=== PATIENT | male | born 1990 | race American Indian/Alaskan Native ===

== ENCOUNTER 2018-11-14 08:25 | Emergency (ER) | payer SELFPAY ==
[2018-11-14 08:51] LABS: Basophils % (Auto) 0.4 % (0.0-1.8); Eosinophils # (Auto) 0.1 K/mm3 (0.0-0.4); Eosinophils % (Auto) 1.1 % (0.0-4.3); Hematocrit 50.3 % (35.5-45.6); Hemoglobin 16.5 gm/dl (11.8-15.2); Lymphocytes # (Auto) 2.9 K/mm3 (1.2-5.4); Lymphocytes % (Auto) 26.1 % (13.4-35.0); Mean Corpuscular HGB Conc 33 % (32-34); Mean Corpuscular Volume 92 fl (84-94); Monocytes # (Auto) 1.1 K/mm3 (0.0-0.8); Monocytes % (Auto) 9.9 % (0.0-7.3); Platelet Count 206 K/mm3 (140-440); Red Blood Count 5.49 M/mm3 (3.65-5.03); Red Cell Distribution Width 13.9 % (13.2-15.2)
[2018-11-14 09:05] LABS: BUN/Creatinine Ratio 9; Blood Urea Nitrogen 8 mg/dL (9-20); Calcium 9.6 mg/dL (8.4-10.2); Hemolysis Index 4
[2018-11-14 09:07] LABS: Bilirubin,Urine NEG (Negative); Blood,Urine SM (Negative); Color,Urine Yellow (Yellow); Mucus,Urine FEW /HPF
[2018-11-14 09:14] LABS: Amphetamine Screen,Urine PRESUMPTIVE NEGATIVE; Benzodiazepines Screen,Urine PRESUMPTIVE NEGATIVE; Cannabinoid Screen,Urine PRESUMPTIVE NEGATIVE; Cocaine Screen,Urine PRESUMPTIVE NEGATIVE; Methadone Screen,Urine PRESUMPTIVE NEGATIVE; Opiate Screen,Urine PRESUMPTIVE NEGATIVE
--- NOTE | 2018-11-14 09:40 | Cat Scan Report ---
CT head/brain wo con INDICATION / CLINICAL INFORMATION: Altered mental status. TECHNIQUE: All CT scans at this location are performed using CT dose reduction for ALARA by means of automated e xposure control. COMPARISON: None available. FINDINGS: The ventricular system is normal in size and configuration. No focal lesion or mass effect is seen. T here is no evidence of intracranial hemorrhage or major vessel occlusion. The calvarium is intact. Th e visualized paranasal sinuses and mastoid air cells are clear. IMPRESSION: No acute abnormality. Signer Name: Gordon Morgan MD Signed: 11/14/2018 9:36 AM Workstation Name: [id number]
--- NOTE | 2018-11-14 09:43 | Emergency Department Report ---
<JOON,BETOHERMINIO Werner - Last Filed: 11/14/18 14:50> ED Psych HPI - General Chief Complaint: Psych Stated Complaint: ANXIETY Time Seen by Provider: 11/14/18 09:00 Source: patient, family Mode of arrival: Ambulatory - History of Present Illness Initial Comments: 28-year-old male with no previous psychiatric history presents to ED for mental health evaluation. Mother states the last 2 weeks patient has been paranoid, stating that people are after him. States friends thought that someone may have laced his alcoholic drink with kind of drug. Patient has been delusional, stating that he was on the news and that he has a lawsuit against [employer], which mother states is not true. Patient reports some auditory hallucinations. Denies SI or HI. Patient denies drug use. MD Complaint: altered mental status -: week(s) (2) Associated Psychiatric Symptoms: auditory hallucinations, delusions History of same: No Quality: getting worse Improves With: none Worsens With: none Associated Symptoms: denies other symptoms Treatments Prior to Arrival: none - Related Data Previous Rx's Medication Instructions Recorded Last Taken Type Benztropine [Cogentin] 0.5 mg PO BID #60 tablet 11/16/18 Unknown Rx Ziprasidone [Geodon] 20 mg PO BID #60 capsule 11/16/18 Unknown Rx Allergies Allergy/AdvReac Type Severity Reaction Status Date / Time No Known Allergies Allergy Unverified 11/14/18 08:38 ED Review of Systems Comment: All other systems reviewed and negative Psychiatric: auditory hallucinations, other (reports paranoia, delusions) ED Past Medical Hx - Past Medical History Previous Medical History?: No - Surgical History Past Surgical History?: No - Social History Smoking Status: Never Smoker Substance Use Type: Alcohol - Medications Home Medications: Home Medications Medication Instructions Recorded Confirmed Last Taken Type Benztropine [Cogentin] 0.5 mg PO BID #60 tablet 11/16/18 Unknown Rx Ziprasidone [Geodon] 20 mg PO BID #60 capsule 11/16/18 Unknown Rx ED Physical Exam - General Limitations: No Limitations General appearance: alert, in no apparent distress - Head Head exam: Present: atraumatic, normocephalic - Eye Eye exam: Present: normal appearance, PERRL, EOMI - ENT ENT exam: Present: mucous membranes moist - Neck Neck exam: Present: normal inspection - Respiratory Respiratory exam: Present: normal lung sounds bilaterally. Absent: respiratory distress - Cardiovascular Cardiovascular Exam: Present: regular rate, normal rhythm - GI/Abdominal GI/Abdominal exam: Present: soft. Absent: distended, tenderness - Extremities Exam Extremities exam: Present: normal inspection - Neurological Exam Neurological exam: Present: alert, oriented X3, CN II-XII intact. Absent: motor sensory deficit - Psychiatric Psychiatric exam: Present: normal affect, normal mood - Skin Skin exam: Present: warm, dry, intact, normal color ED Medical Decision Making - Lab Data Result diagrams: 11/14/18 08:42 11/14/18 08:42 - Medical Decision Making 28-year-old male with new-onset psychosis. CT head is normal. Patient placed on 1013. Labs are unremarkable. Patient is medically clear for mental health evaluation. Will dispo per psych. - Differential Diagnosis drug induced psychosis, new onset schizophrenia ED Disposition Clinical Impression: Psychosis Disposition: DC-01 TO HOME OR SELFCARE Condition: Stable Instructions: Brief Psychotic Disorder (ED) Additional Instructions: Take the medication as prescribed. Follow-up with your doctor or with the do ctor/clinic provided. Return if symptoms worsen as indicated by your discharge instructions. Prescriptions: Benztropine [Cogentin] 0.5 mg PO BID #60 tablet Ziprasidone [Geodon] 20 mg PO BID #60 capsule Referrals: [facility] [Outside] - 3-5 Days <SUREKHA ABARCA - Last Filed: 11/16/18 10:48> ED Review of Systems ROS: Stated complaint: ANXIETY Other details as noted in HPI ED Course Vital Signs 11/14/18 11/14/18 11/14/18 08:35 14:34 20:47 Temperature 98.4 F 98.0 F 97.9 F Pulse Rate 90 77 75 Respiratory 18 18 18 Rate Blood Pressure 162/111 Blood Pressure 160/97 162/97 [Right] O2 Sat by Pulse 100 98 98 Oximetry 11/15/18 11/15/18 11/15/18 01:00 08:00 14:48 Temperature 97.5 F L 98.1 F 97.6 F Pulse Rate 82 75 88 Respiratory 16 18 20 Rate Blood Pressure Blood Pressure 130/89 163/100 183/103 [Right] O2 Sat by Pulse 98 99 100 Oximetry 11/15/18 11/16/1819 22:41 00:00 07:00 Temperature 98.2 F 97.3 F L 97.5 F L Pulse Rate 98 H 92 H 91 H Respiratory 18 18 18 Rate Blood Pressure Blood Pressure 134/99 137/81 134/104 [Right] O2 Sat by Pulse 100 98 99 Oximetry - Reevaluation(s) Reevaluation #1: 11/16/18 10:43 1013 rescinded as per recommendation ED Medical Decision Making - Lab Data Result diagrams: 11/14/18 08:42 11/14/18 08:42 Critical Care Time: No Critical care attestation.: If time is entered above; I have spent that time in minutes in the direct care of this critically ill patient, excluding procedure time. ED Disposition Is pt being admited?: No Does the pt Need Aspirin: No Time of Disposition: 10:47
[2018-11-14] MEDS ORDERED: cloNIDine 0.2 MG TAB PO ONE (23:08)
[2018-11-15] MEDS ORDERED: hydroCHLOROthiazide 25 MG TAB PO ONE (10:17)
[2018-11-15] MEDS ORDERED: hydrOXYzine PAMOATE 25 MG CAP PO ONE (11:51)
--- NOTE | 2018-11-15 12:03 | Consultation ---
History of Present Illness - Reason for Consult Consult date: 11/15/18 Reason for consult: Mental Health Evaluation Requesting physician: ANICETO DUPREE - Chief Complaint Chief complaint: 'They are after me" - History of Present Psychiatric Illness 28 y.o. AA male who presented to the ER for acute psychosis. The patient was somewhat preoccupied during the assessment. He was asked about "people following him, he stated, 'They are. " He could not elaborate about these people when asked. Throughout the interview, he would pause before he answer questions. Prior to my arrival to the patient's room, he was observed staring at the TV monitor that was off. The patient is adamant that he is fine and need to get back to work. At this time, the patient's insight is limited to poor. No gestures of SI/HI's. Medications and Allergies Allergies Allergy/AdvReac Type Severity Reaction Status Date / Time No Known Allergies Allergy Unverified 11/14/18 08:38 Home Medications Medication Instructions Recorded Confirmed Last Taken Type Benztropine [Cogentin] 0.5 mg PO BID #60 tablet 11/16/18 Unknown Rx Ziprasidone [Geodon] 20 mg PO BID #60 capsule 11/16/18 Unknown Rx Past psychiatric history - Past Medical History Past Medical History: No medical history Past Surgical History: No surgical history - past Psychiatric treatment and history psychiatric treatment history: Denies a psy hx and a fam psy hx. - Social History Social history: lives with family Mental Status Exam - Vital signs Last Vital Signs Temp 97.5 F L 11/15/18 01:00 Pulse 82 11/15/18 01:00 Resp 16 11/15/18 01:00 BP 130/89 11/15/18 01:00 Pulse Ox 98 11/15/18 01:00 - Exam Narrative exam: MSE: Appearance: calm Behavior: regular eye contact Speech: regular rate and tone Mood: somewhat preoccupied Affect: congruent to mood Thought Process: somewhat disorganized, tangential Thought Content: denies SI/HI's and AVH's, delusional, responding to some type of stimuli Motor Activity: sitting up in bed Cognition: A/O x3 Insight: variable Judgment: variable Results Result Diagrams: 11/14/18 08:42 11/14/18 08:42 All other labs normal. Assessment and Plan Assessment and plan: Impression: Unspecified Psychosis. Today the patient was somewhat preoccupied during the assessment. UDS is negative. DDX: R/O Schizophrenia, Bipolar DO with psychosis, Delusional DO Recommendation/Plan: Continue 1013 and start Geodon 20 mg PO mg PO BID for psyhcosis and Cogentin 0.5 mg BID for EPS prevention. Discussed possible metabolic side effects of Geodon with the patient, he verbalized understanding, Admin Geodon with food. Baseline A1c/Lipid Panel ordered for the AM. Dispo: The patient was referred to inpatient psy services. Staffed with Dr Charlie Griffith.
[2018-11-15] MEDS: ZIPRASIDONE 20 MG CAP PO SCH ×2 (12:59→22:21)
[2018-11-15] MEDS: BENZTROPINE 0.5 MG TAB PO SCH ×2 (12:59→22:21)
[2018-11-16 06:09] LABS: Chol/HDL Ratio 3.52 %
[2018-11-16 07:55] VITALS: BP 134/104
--- NOTE | 2018-11-16 09:37 | Progress Note ---
Subjective - Reason for Consult Consult date: 11/16/18 Reason for consult: Psychiatry Follow-up - Chief Complaint Chief complaint: 'I feel better, I got some sleep" 28 y.o. AA male who presented to the ER for acute psychosis. The patient was calm and cooperative during the assessment. He was more organized. His answers were logical. He stated that he got "plenty of rest" last night. He denies being watched or followed when asked. He denies SI/HI's and AVH's. He denies any side effects from his medications. Mental Status Exam - Vital signs Last Vital Signs Temp 97.5 F L 11/16/18 07:00 Pulse 91 H 11/16/18 07:00 Resp 18 11/16/18 07:00 BP 134/104 11/16/18 07:00 Pulse Ox 99 11/16/18 07:00 - Exam Narrative exam: MSE: Appearance: calm, cooperative Behavior: regular eye contact Speech: regular rate and tone Mood: "better" Affect: congruent to mood Thought Process: more organized Thought Content: denies SI/HI's and AVH's Motor Activity: sitting up in bed Cognition: A/O x3 Insight: fair Judgment: fair Assessment and Plan Impression: Unspecified Psychosis. No overt psychosis with the patient. Today the patient was calm and cooperative during the assessment. UDS is negative. DDX: R/O Schizophrenia, Bipolar DO with psychosis, Delusional DO Recommendation/Plan: Rescind 1013 and continue Geodon 20 mg PO mg PO BID for psychosis and Cogentin 0.5 mg BID for EPS prevention. Discussed possible metabolic side effects of Geodon with the patient, he verbalized understanding, Admin Geodon with food. Dispo: The patient can follow up with [facility] for outpatient psy services. Staffed with Dr Charlie Griffith.
[2018-11-16] MEDS: BENZTROPINE 0.5 MG TAB PO SCH (10:10)
[2018-11-16] MEDS: ZIPRASIDONE 20 MG CAP PO SCH (10:11)
== END 2018-11-16 11:00 | disposition home or self-care (01) ==
LOC: EEVIPCON 08:25 → ED 08:25
DX: F23 Brief psychotic disorder (principal); F41.9 Anxiety disorder, unspecified; Z79.899 Other long term (current) drug therapy
CPT/HCPCS: 36415; 70450; 80048; 80061; 80307; 80320; 81001; 83036; 85025; 99284; G0480; Q0177

== ENCOUNTER 2019-08-14 18:44 | Emergency (ER) | payer SELFPAY ==
--- NOTE | 2019-08-14 19:22 | Emergency Department Report ---
Blank Doc - Documentation Documentation: 29-year-old male that near syncope episode today at work. Stated he started to have sharp midsternum chest pain at work and was sent to the ED. Tachycardia and HTN in triage. This initial assessment/diagnostic orders/clinical plan/treatment(s) is/are subject to change based on patient's health status, clinical progression and re- assessment by fellow clinical providers in the ED. Further treatment and workup at subsequent clinical providers discretion. Patient/guardians urged not to elope from the ED as their condition may be serious if not clinically assessed and managed. Initial orders include: 1- Patient sent to [facility] for further evaluation and treatment 2-- cardiac workup
[2019-08-14 19:45] LABS: Basophils # (Auto) 0.1 K/mm3 (0.0-0.1); Basophils % (Auto) 0.5 % (0.0-1.8); Eosinophils # (Auto) 0.1 K/mm3 (0.0-0.4); Eosinophils % (Auto) 0.5 % (0.0-4.3); Hematocrit 45.8 % (35.5-45.6); Hemoglobin 15.4 gm/dl (11.8-15.2); Lymphocytes # (Auto) 2.6 K/mm3 (1.2-5.4); Lymphocytes % (Auto) 25.7 % (13.4-35.0); Mean Corpuscular HGB Conc 34 % (32-34); Mean Corpuscular Volume 93 fl (84-94); Monocytes # (Auto) 0.8 K/mm3 (0.0-0.8); Monocytes % (Auto) 8.1 % (0.0-7.3); Platelet Count 191 K/mm3 (140-440); Red Blood Count 4.94 M/mm3 (3.65-5.03)
--- NOTE | 2019-08-14 19:47 | XRay Report ---
CHEST 2 VIEWS INDICATION / CLINICAL INFORMATION: Chest Pain. COMPARISON: 11/16/2007 FINDINGS: SUPPORT DEVICES: None. HEART / MEDIASTINUM: No significant abnormality. LUNGS / PLEURA: No significant pulmonary or pleural abnormality. No pneumothorax. ADDITIONAL FINDINGS: No significant additional findings. IMPRESSION: 1. No acute findings. No interval change. Signer Name: Jesenia Pickett MD Signed: 08/14/2019 7:42 PM Workstation Name: [id number]
[2019-08-14 20:08] LABS: Alanine Aminotransferase 101 units/L (7-56); BUN/Creatinine Ratio 11; Blood Urea Nitrogen 10 mg/dL (9-20); Calcium 9.7 mg/dL (8.4-10.2)
--- NOTE | 2019-08-14 21:57 | Emergency Department Report ---
ED General Adult HPI - General Chief complaint: Chest Pain Stated complaint: CP PUI?: No Time Seen by Provider: 08/14/19 19:13 Source: patient Mode of arrival: Ambulatory Limitations: No Limitations - History of Present Illness Initial comments: 29-year-old morbidly obese -[place]onese male presents to the emergency room reporting that he needs a checkup for his heartburn. Patient states that he [place] [employer] [place] Patient [place] and the [place] yogurt placed in his been having some problems at work. Patient states that he usually takes Tums for his heartburn which helps. Patient denies any nausea vomiting he does report sweats. Patient reports that he had some chest pain when asked about any chest pain he pointed to the midsternal area. Patient denies any discomfort or pain at this time. Review of patient's medical records shows that he has elevated blood pressure several times while coming here to the hospital. Patient denies any primary care provider at this time -: This evening Location: chest Radiation: non-radiation Severity scale (0 -10): 6 Quality: sharp Consistency: now resolved Associated Symptoms: other Treatments Prior to Arrival: other (Tums and acids) - Related Data Previous Rx's Medication Instructions Recorded Last Taken Type Benztropine [Cogentin] 0.5 mg PO BID #60 tablet 11/16/18 Unknown Rx Ziprasidone [Geodon] 20 mg PO BID #60 capsule 11/16/18 Unknown Rx Allergies Allergy/AdvReac Type Severity Reaction Status Date / Time No Known Allergies Allergy Verified 08/14/19 18:57 ED Review of Systems ROS: Stated complaint: CP Other details as noted in HPI Comment: All other systems reviewed and negative ED Past Medical Hx - Past Medical History Previous Medical History?: No - Surgical History Past Surgical History?: No - Social History Smoking Status: Former Smoker Substance Use Type: None - Medications Home Medications: Home Medications Medication Instructions Recorded Confirmed Last Taken Type Benztropine [Cogentin] 0.5 mg PO BID #60 tablet 11/16/18 Unknown Rx Ziprasidone [Geodon] 20 mg PO BID #60 capsule 11/16/18 Unknown Rx ED Physical Exam - General Limitations: No Limitations General appearance: alert, in no apparent distress, obese - Head Head exam: Present: atraumatic, normocephalic - Eye Eye exam: Present: normal appearance - ENT ENT exam: Present: mucous membranes moist - Neck Neck exam: Present: normal inspection - Respiratory Respiratory exam: Present: normal lung sounds bilaterally. Absent: respiratory distress - Cardiovascular Cardiovascular Exam: Present: regular rate, normal rhythm. Absent: systolic murmur, diastolic murmur, rubs, gallop - GI/Abdominal GI/Abdominal exam: Present: soft, normal bowel sounds. Absent: distended, tenderness, guarding - Rectal Rectal exam: Present: deferred - Extremities Exam Extremities exam: Present: normal inspection, full ROM - Back Exam Back exam: Present: normal inspection, full ROM - Neurological Exam Neurological exam: Present: alert, oriented X3 - Psychiatric Psychiatric exam: Present: normal affect, normal mood - Skin Skin exam: Present: warm, dry, intact, normal color. Absent: rash ED Course Vital Signs 08/14/19 08/14/19 19:03 19:17 Temperature 98 F Pulse Rate 104 H Respiratory 18 Rate Blood Pressure 174/113 159/109 [Left] O2 Sat by Pulse 98 Oximetry ED Medical Decision Making - Lab Data Result diagrams: 08/14/19 19:25 08/14/19 19:25 Laboratory Tests 08/14/19 08/14/19 19:25 19:25 WBC 10.0 RBC 4.94 Hgb 15.4 H Hct 45.8 H MCV 93 MCH 31 MCHC 34 RDW 14.0 Plt Count 191 Lymph % (Auto) 25.7 Jones % (Auto) 8.1 H Eos % (Auto) 0.5 Baso % (Auto) 0.5 Lymph # 2.6 Jones # 0.8 Eos # 0.1 Baso # 0.1 Seg Neutrophils % 65.2 Seg Neutrophils # 6.5 Sodium 138 Potassium 3.7 Chloride 101.0 Carbon Dioxide 24 Anion Gap 17 BUN 10 Creatinine 0.9 Estimated GFR > 60 BUN/Creatinine Ratio 11 Glucose 134 H Calcium 9.7 Total Bilirubin 0.50 AST 62 H ALT 101 H Alkaline Phosphatase 98 Troponin T < 0.010 Total Protein 7.0 Albumin 4.0 Albumin/Globulin Ratio 1.3 - EKG Data EKG shows normal: sinus rhythm Rate: tachycardia - Radiology Data Radiology results: report reviewed Referring Physician:BIRTTNEY ROTHMANPatient Name:JENNIFER BAUTISTAPatient ID:[id number] of :[id number]:MaleAccession:[id number] Date:[id number] Status:Finalized Findings [facility] [address] [place] [address] XRay Report Signed Patient: JENNIFER BAUTISTA MR#: [id number] : 1990 Acct:[id number] Age/Sex: 29 / M ADM Date: 08/14/19 Loc: ED Attending Dr: Ordering Physician: BRITTNEY ROTHMAN NP Date of Service: 08/14/19 Procedure(s): XR chest routine 2V Accession Number(s): [id number] cc: BRITTNEY ROTHMAN NP Fluoro Time In Minutes: CHEST 2 VIEWS INDICATION / CLINICAL INFORMATION: Chest Pain. COMPARISON: 11/16/2007 FINDINGS: SUPPORT DEVICES: None. HEART / MEDIASTINUM: No significant abnormality. LUNGS / PLEURA: No significant pulmonary or pleural abnormality. No pneumothorax. ADDITIONAL FINDINGS: No significant additional findings. IMPRESSION: 1. No acute findings. No interval change. Signer Name: Jesenia Pickett MD Signed: 08/14/2019 7:42 PM Workstation Name: [id number] Transcribed By: JR Dictated By: Jesenia Pickett MD Electronically Authenticated By: Jesenia Pickett MD Signed Date/Time: 08/14/191941 DD/ 41 TD/TT: - Medical Decision Making 29-year-old morbidly obese -[place]onese male presents to the emergency room reporting that he needs a checkup for his heartburn. Patient states that he thinks someone put a pill in his drink at the [employer] at the [employer]. Patient reports he works at the [employer] and the TBI yogurt placed in his been having some problems at work. Patient states that he usually takes Tums for his heartburn which helps. Patient denies any nausea vomiting he does report sweats. Patient reports that he had some chest pain when asked about any chest pain he pointed to the midsternal area. Patient denies any discomfort or pain at this time. Review of patient's medical records shows that he has elevated blood pressure several times while coming here to the hospital. Patient denies any primary care provider at this time. Labs are stable no elevation of troponin lipase is normal. Chest x-ray shows no acute abnormalities. EKG is within normal limits. Patient be referred to a primary care provider as well as a rectification printer and bariatric surgeon. Critical care attestation.: If time is entered above; I have spent that time in minutes in the direct care of this critically ill patient, excluding procedure time. ED Disposition Clinical Impression: Severely overweight, Atypical chest pain, Acid reflux, Elevated blood pressure reading in office with diagnosis of hypertension Disposition: TO HOME OR SELFCARE Is pt being admited?: No Does the pt Need Aspirin: No Condition: Stable Instructions: Chest Pain (ED), Hypertension (ED), Gastroesophageal Reflux Disease (ED) Additional Instructions: Please follow-up with a primary care provider I have listed 1 below. I have also listed a rectification printer as well as a general surgeon to talk about bariatric interventions. For weight loss. You can continue with Tums until you make an appointment with your primary care provider. Referrals: PRIMARY CAREMD [Primary Care Provider] - 3-5 Days BEATRIS OCONNOR MD [Staff Physician] - 3-5 Days [facility] [Provider Group] - 3-5 Days KYLER CARRERO MD [Staff Physician] - 3-5 Days Forms: Work/School Release Form(ED)
[2019-08-14 22:31] VITALS: BP 149/100
== END 2019-08-14 22:42 | disposition home or self-care (01) ==
LOC: ED 18:44
DX: R07.89 Other chest pain (principal); K21.9 Gastro-esophageal reflux disease without esophagitis; I10 Essential (primary) hypertension; E66.8 Other obesity; Z87.891 Personal history of nicotine dependence
CPT/HCPCS: 36415; 71046; 80053; 84484; 85025; 93005

== ENCOUNTER 2020-07-13 18:46 | Emergency (ER) | payer OTHER, SELFPAY ==
[2020-07-13 21:27] LABS: Basophils # (Auto) 0.1 K/mm3 (0.0-0.1); Basophils % (Auto) 0.6 % (0.0-1.8); Eosinophils % (Auto) 0.2 % (0.0-4.3); Hematocrit 47.5 % (35.5-45.6); Lymphocytes # (Auto) 2.5 K/mm3 (1.2-5.4); Lymphocytes % (Auto) 15.1 % (13.4-35.0); Mean Corpuscular HGB Conc 34 % (32-34); Mean Corpuscular Volume 92 fl (84-94); Monocytes % (Auto) 6.3 % (0.0-7.3); Platelet Count 210 K/mm3 (140-440); Red Blood Count 5.16 M/mm3 (3.65-5.03); Red Cell Distribution Width 13.9 % (13.2-15.2)
[2020-07-13 21:45] LABS: BUN/Creatinine Ratio 10; Blood Urea Nitrogen 10 mg/dL (9-20); Calcium 9.9 mg/dL (8.4-10.2); Hemolysis Index 5
[2020-07-13] MEDS ORDERED: LORazepam 1 MG TAB PO ONE (23:39)
--- NOTE | 2020-07-14 00:02 | Emergency Department Report ---
<ANIYAH GALVEZ - Last Filed: 07/14/20 13:54> ED Psych HPI - General Chief Complaint: Psych Stated Complaint: MENTAL HEALTH/ NOT TAKING MEDS Time Seen by Provider: 07/13/20 23:25 - Related Data Previous Rx's Medication Instructions Recorded Last Taken Type Benztropine [Cogentin] 0.5 mg PO BID #60 tablet 11/16/18 Unknown Rx Ziprasidone [Geodon] 20 mg PO BID #60 capsule 11/16/18 Unknown Rx Paliperidone Palmitate [Invega 156 mg IM QMONTH #3 syringe 07/14/20 Unknown Rx Sustenna] Allergies Allergy/AdvReac Type Severity Reaction Status Date / Time No Known Allergies Allergy Verified 08/14/19 18:57 ED Past Medical Hx - Medications Home Medications: Home Medications Medication Instructions Recorded Confirmed Last Taken Type Benztropine [Cogentin] 0.5 mg PO BID #60 tablet 11/16/18 Unknown Rx Ziprasidone [Geodon] 20 mg PO BID #60 capsule 11/16/18 Unknown Rx Paliperidone Palmitate [Invega 156 mg IM QMONTH #3 syringe 07/14/20 Unknown Rx Sustenna] ED Course - Reevaluation(s) Reevaluation #1: 07/14/20 13:54 Psychiatric Consult Note Patient Name: JENNIFER BAUTISTA Date of : 89 Patient Status: Emergency Emergency Provider: ANICETO DUPREE Date: 07/14/20 11:11 Initialization Date: 07/14/20 11:11 History of Present Illness - Reason for Consult Consult date: 07/14/20 Reason for consult: MHE Requesting physician: ANICETO DUPREE - History of Present Psychiatric Illness Per ED Provider:30-year-old male, history of bipolar disorder and schizophrenia, presents to ED for mental health evaluation. Per patient's mother, patient has not been taking his medication for the last month. Patient has been exhibiting aggressive behavior and rambling thoughts. Patient reports some auditory hallucinations. States people are sending messages to him. Patient denies any SI or HI. PSYCH HPI Patient is a 30-year-old single, unemployed -[place] male with past psychiatric history of bipolar schizophrenia who currently resides with his mom presented to the ED by mom with complaint of increased aggressive behavior and medication noncompliance. Patient presented as guarded, patient stated he is here because his mom brought him here due to family problems. Patient elaborates that her family problem is currently having is with his stepdad who has been a coward and has been messing with him at home. Patient denies SI, HI or AVJ. PAST PSYCHIATRIC HISTORY Diagnoses: Schizophrenia Suicide attempts or Self-harm behavior: none rported Prior psychiatric hospitalizations: none rported Substance Abuse history: none rported Previous psychiatric medications tried: Outpatient treatment: PAST MEDICAL HISTORY: none rported Family Psychiatric History: None reported or documented SOCIAL HISTORY Marital Status: single Living Arrangements: with family Employment Status: emplyed Access to guns/weapons: none reprted Education: some college History of Abuse: none reprted Legal History: yes REVIEW OF SYSTEMS Constitutional: Negative for weight loss ENT: Negative for stridor Respiratory: Negative for cough or hemoptysis All other systems reviewed and are negative MENTAL STATUS EXAMINATION General Appearance and Behavior: Age appropriate, fair hygiene, wearing appropriate clothes, lying in bed, poor eye contact, cooperative irritable with questioning. Cooperation: Participating, Hostile and Guarded Psychomotor Behavior: unremarkable and within normal limits Mood: I don't know Affect and affective range: flat, preservative Thought Process: Illogical, Blocked, Thought Content: Hopelessness, Speech: Normal volume, Regular rate and rhythm, Intellectual Functioning: Average Suicidal Ideation: Denies SI Homicidal Ideation: Denies HI Impulse Control: Impaired Insight and Judgment: Limited insight and judgment Memory: Short term memory intact Attention: Divided attention impaired Orientation: Alert, oriented, Assessment and Plan - Psychiatric problem (1) Bipolar disorder Current Visit: Yes Status: Acute F31.9 Treatment Plan Due to history of non compliance, pt started on IM invega, would need outpt follow up psychiatry. MEDICATIONS: Risks, benefits and alternatives of medications discussed with the patient, questions answered and consent obtained from patient. PSYCHOTHERAPY: Supportive psychotherapy provided MEDICAL: Per primary team DELIRIUM PRECAUTIONS: Please re-orient patient frequently, keep lights on during the day, and minimize benzodiazepines and opiates as these medications could worsen patient's confusion. 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 Case discussed with Dr. Restrepo who agrees with current disposition LEGAL STATUS: 1013 rescinded FOLLOW-UP: Will sign off Thank you for the consult. Please contact with any questions and/or concerns. ED Medical Decision Making - Lab Data Result diagrams: 07/14/20 11:40 07/13/20 20:57 Lab Results 07/13/20 07/13/20 07/13/20 Range/Units 20:57 20:57 20:57 WBC (4.5-11.0) K/mm3 RBC (3.65-5.03) M/mm3 Hgb (11.8-15.2) gm/dl Hct (35.5-45.6) % MCV (84-94) fl MCH (28-32) pg MCHC (32-34) % RDW (13.2-15.2) % Plt Count (140-440) K/mm3 Lymph % (Auto) (13.4-35.0) % [place] % (Auto) (0.0-7.3) % Eos % (Auto) (0.0-4.3) % Baso % (Auto) (0.0-1.8) % Lymph # (Auto) (1.2-5.4) K/mm3 [place] # (Auto) (0.0-0.8) K/mm3 Eos # (Auto) (0.0-0.4) K/mm3 Baso # (Auto) (0.0-0.1) K/mm3 Seg Neutrophils % (40.0-70.0) % Seg Neutrophils # (1.8-7.7) K/mm3 Sodium 138 (137-145) mmol/L Potassium 4.2 (3.6-5.0) mmol/L Chloride 99.3 (98-107) mmol/L Carbon Dioxide 28 (22-30) mmol/L Anion Gap 15 mmol/L BUN 10 (9-20) mg/dL Creatinine 1.0 (0.8-1.3) mg/dL Estimated GFR > 60 ml/min BUN/Creatinine Ratio 10 % Glucose 171 H (75-100) mg/dL Calcium 9.9 (8.4-10.2) mg/dL Urine Color (Yellow) Urine Turbidity (Clear) Urine pH (5.0-7.0) Ur Specific [place] (1.003-1.030) Urine Protein (Negative) mg/dL Urine Glucose (UA) (Negative) mg/dL Urine Ketones (Negative) mg/dL Urine Blood (Negative) Urine Nitrite (Negative) Ur Reducing Substances Urine Bilirubin (Negative) Urine Ictotest Urine Urobilinogen (<2.0) mg/dL Ur Leukocyte Esterase (Negative) Urine WBC (Auto) (0.0-6.0) /HPF Urine RBC (Auto) (0.0-6.0) /HPF U Epithel Cells (Auto) (0-13.0) /HPF Urine Mucus /HPF Salicylates 0.3 L (2.8-20.0) mg/dL Urine Opiates Screen Urine Methadone Screen Acetaminophen 5.0 L (10.0-30.0) ug/mL Ur Barbiturates Screen Ur Phencyclidine Scrn Ur Amphetamines Screen U Benzodiazepines Scrn Urine Cocaine Screen U Marijuana (THC) Screen Drugs of Abuse Note Plasma/Serum Alcohol (0-0.07) % 07/13/20 07/13/20 07/14/20 Range/Units 20:57 20:57 07:52 WBC 16.7 H (4.5-11.0) K/mm3 RBC 5.16 H (3.65-5.03) M/mm3 Hgb 16.0 H (11.8-15.2) gm/dl Hct 47.5 H (35.5-45.6) % MCV 92 (84-94) fl MCH 31 (28-32) pg MCHC 34 (32-34) % RDW 13.9 (13.2-15.2) % Plt Count 210 (140-440) K/mm3 Lymph % (Auto) 15.1 (13.4-35.0) % [place] % (Auto) 6.3 (0.0-7.3) % Eos % (Auto) 0.2 (0.0-4.3) % Baso % (Auto) 0.6 (0.0-1.8) % Lymph # (Auto) 2.5 (1.2-5.4) K/mm3 [place] # (Auto) 1.0 H (0.0-0.8) K/mm3 Eos # (Auto) 0.0 (0.0-0.4) K/mm3 Baso # (Auto) 0.1 (0.0-0.1) K/mm3 Seg Neutrophils % 77.8 H (40.0-70.0) % Seg Neutrophils # 13.0 H (1.8-7.7) K/mm3 Sodium (137-145) mmol/L Potassium (3.6-5.0) mmol/L Chloride (98-107) mmol/L Carbon Dioxide (22-30) mmol/L Anion Gap mmol/L BUN (9-20) mg/dL Creatinine (0.8-1.3) mg/dL Estimated GFR ml/min BUN/Creatinine Ratio % Glucose (75-100) mg/dL Calcium (8.4-10.2) mg/dL Urine Color Yellow (Yellow) Urine Turbidity Clear (Clear) Urine pH 6.0 (5.0-7.0) Ur Specific [place] 1.021 (1.003-1.030) Urine Protein 30 mg/dl (Negative) mg/dL Urine Glucose (UA) Neg (Negative) mg/dL Urine Ketones Neg (Negative) mg/dL Urine Blood Neg (Negative) Urine Nitrite Neg (Negative) Ur Reducing Substances Not Reportable Urine Bilirubin Neg (Negative) Urine Ictotest Not Reportable Urine Urobilinogen 4.0 (<2.0) mg/dL Ur Leukocyte Esterase Neg (Negative) Urine WBC (Auto) < 1.0 (0.0-6.0) /HPF Urine RBC (Auto) 3.0 (0.0-6.0) /HPF U Epithel Cells (Auto) < 1.0 (0-13.0) /HPF Urine Mucus Few /HPF Salicylates (2.8-20.0) mg/dL Urine Opiates Screen Urine Methadone Screen Acetaminophen (10.0-30.0) ug/mL Ur Barbiturates Screen Ur Phencyclidine Scrn Ur Amphetamines Screen U Benzodiazepines Scrn Urine Cocaine Screen U Marijuana (THC) Screen Drugs of Abuse Note Plasma/Serum Alcohol < 0.01 (0-0.07) % 07/14/20 07/14/20 Range/Units 07:52 11:40 WBC 11.8 H (4.5-11.0) K/mm3 RBC 4.88 (3.65-5.03) M/mm3 Hgb 15.2 (11.8-15.2) gm/dl Hct 45.2 (35.5-45.6) % MCV 93 (84-94) fl MCH 31 (28-32) pg MCHC 34 (32-34) % RDW 13.9 (13.2-15.2) % Plt Count 180 (140-440) K/mm3 Lymph % (Auto) (13.4-35.0) % [place] % (Auto) (0.0-7.3) % Eos % (Auto) (0.0-4.3) % Baso % (Auto) (0.0-1.8) % Lymph # (Auto) (1.2-5.4) K/mm3 [place] # (Auto) (0.0-0.8) K/mm3 Eos # (Auto) (0.0-0.4) K/mm3 Baso # (Auto) (0.0-0.1) K/mm3 Seg Neutrophils % (40.0-70.0) % Seg Neutrophils # (1.8-7.7) K/mm3 Sodium (137-145) mmol/L Potassium (3.6-5.0) mmol/L Chloride (98-107) mmol/L Carbon Dioxide (22-30) mmol/L Anion Gap mmol/L BUN (9-20) mg/dL Creatinine (0.8-1.3) mg/dL Estimated GFR ml/min BUN/Creatinine Ratio % Glucose (75-100) mg/dL Calcium (8.4-10.2) mg/dL Urine Color (Yellow) Urine Turbidity (Clear) Urine pH (5.0-7.0) Ur Specific [place] (1.003-1.030) Urine Protein (Negative) mg/dL Urine Glucose (UA) (Negative) mg/dL Urine Ketones (Negative) mg/dL Urine Blood (Negative) Urine Nitrite (Negative) Ur Reducing Substances Urine Bilirubin (Negative) Urine Ictotest Urine Urobilinogen (<2.0) mg/dL Ur Leukocyte Esterase (Negative) Urine WBC (Auto) (0.0-6.0) /HPF Urine RBC (Auto) (0.0-6.0) /HPF U Epithel Cells (Auto) (0-13.0) /HPF Urine Mucus /HPF Salicylates (2.8-20.0) mg/dL Urine Opiates Screen Negative Urine Methadone Screen Negative Acetaminophen (10.0-30.0) ug/mL Ur Barbiturates Screen Negative Ur Phencyclidine Scrn Negative Ur Amphetamines Screen Negative U Benzodiazepines Scrn Negative Urine Cocaine Screen Negative U Marijuana (THC) Screen Negative Drugs of Abuse Note Disclamer Plasma/Serum Alcohol (0-0.07) % - Medical Decision Making Patient was signed off on by our psychiatry team and they stated that the patient does not meet inpatient psychiatric criteria. Patient be discharged home ED Disposition Clinical Impression: Schizophrenia Disposition: DC-01 TO HOME OR SELFCARE Is pt being admited?: No Does the pt Need Aspirin: No Condition: Stable Instructions: Schizophrenia, Supporting Someone With Schizophrenia Additional Instructions: OUTPATIENT MENTAL HEALTH RESOURCES [facility], [facility] Maulik Nguyen MD: [address] [place] [address] [facility] [address] [place] [address] [place] [address] [place] Psychotherapy: [employer] [address] [place] [address] [place] [address] [phone] [facility]: [facility] Healthcare: [address] [facility] [address] [facility] [place] [address] [facility] [address] [place] [facility]: Sy Anderson MD: [address] [facility] [address] [facility] [id number] [facility]: [address] [facility] [place], [place] [id number] [phone] [place] CRISIS AND ACCESS LINE: Prescriptions: Paliperidone Palmitate [Invega Sustenna] 156 mg IM QMONTH #3 syringe Referrals: ROCK MENENDEZ MD [Primary Care Provider] - 3-5 Days Time of Disposition: 13:55 <ANICETO DUPREE - Last Filed: 07/15/20 00:49> ED Psych HPI - General Source: patient Mode of arrival: Ambulatory - History of Present Illness Initial Comments: 30-year-old male, history of bipolar disorder and schizophrenia, presents to ED for mental health evaluation. Per patient's mother, patient has not been taking his medication for the last month. Patient has been exhibiting aggressive behavior and rambling thoughts. Patient reports some auditory hallucinations. States people are sending messages to him. Patient denies any SI or HI. MD Complaint: other -: month(s) (1) Associated Psychiatric Symptoms: auditory hallucinations, delusions, other (A ggressive behavior) Quality: constant Improves With: medication Worsens With: other (Being off his psychiatric medications) Context: not taking psychiatric Associated Symptoms: denies other symptoms Treatments Prior to Arrival: none ED Review of Systems ROS: Stated complaint: MENTAL HEALTH/ NOT TAKING MEDS Other details as noted in HPI Comment: All other systems reviewed and negative Constitutional: denies: chills, fever ENT: denies: throat pain Respiratory: denies: cough, shortness of breath Gastrointestinal: diarrhea. denies: abdominal pain, nausea, vomiting Psychiatric: auditory hallucinations. denies: homicidal thoughts, suicidal thoughts ED Past Medical Hx - Past Medical History Previous Medical History?: Yes Hx Psychiatric Treatment: Yes (Bipolar, Schizophrenia) Additional medical history: Morbid Obesity - Surgical History Past Surgical History?: No - Social History Smoking Status: Never Smoker Substance Use Type: None ED Physical Exam - General Limitations: No Limitations General appearance: alert, in no apparent distress, obese - Head Head exam: Present: atraumatic, normocephalic - Eye Eye exam: Present: normal appearance, EOMI - ENT ENT exam: Present: mucous membranes moist - Neck Neck exam: Present: normal inspection - Respiratory Respiratory exam: Present: normal lung sounds bilaterally. Absent: respiratory distress - Cardiovascular Cardiovascular Exam: Present: regular rate, normal rhythm - GI/Abdominal GI/Abdominal exam: Absent: distended - Extremities Exam Extremities exam: Present: normal inspection - Neurological Exam Neurological exam: Present: alert, oriented X3 - Psychiatric Psychiatric exam: Present: normal affect, normal mood - Skin Skin exam: Present: warm, dry, intact, normal color ED Course Vital Signs 07/13/20 07/13/20 07/14/20 21:04 23:43 00:29 Temperature 99.8 F H 98.4 F Pulse Rate 100 H 96 H Respiratory 18 18 18 Rate Blood Pressure Blood Pressure 174/100 181/89 [Left] O2 Sat by Pulse 100 99 Oximetry 07/14/20 07/14/20 07/14/20 02:00 09:02 09:03 Temperature 98.6 F 98 F Pulse Rate 92 H 90 90 Respiratory 18 20 Rate Blood Pressure 151/97 Blood Pressure 160/80 151/97 [Left] O2 Sat by Pulse 100 100 Oximetry ED Medical Decision Making - Lab Data Result diagrams: 07/14/20 11:40 07/13/20 20:57 - Medical Decision Making 38-year-old male presents to ED for mental health evaluation. Patient has history of bipolar and schizophrenia and has not been taking his medications. Patient denies any SI or HI. He reports some auditory hallucinations. Blood pressure is elevated, patient denies any previous diagnosis of hypertension, however in the past visits blood pressure has been elevated. Patient has been started on Norvasc. WBCs are slightly elevated, patient reports he had some diarrhea a couple of days ago, however remainder of review of systems is negative. Abdomen is soft and nontender. He has no vomiting. He is afebrile at this time. Awaiting urine for UA and urine drug screen, otherwise patient is medically clear for mental health evaluation. Critical care attestation.: If time is entered above; I have spent that time in minutes in the direct care of this critically ill patient, excluding procedure time.
[2020-07-14 08:08] LABS: Bilirubin,Urine NEG (Negative); Blood,Urine NEG (Negative); Color,Urine Yellow (Yellow); Mucus,Urine FEW /HPF; WBC,Urine < 1.0 /HPF (0.0-6.0)
[2020-07-14 08:14] LABS: Amphetamine Screen,Urine Negative; Benzodiazepines Screen,Urine Negative; Cannabinoid Screen,Urine Negative; Cocaine Screen,Urine Negative; Methadone Screen,Urine Negative; Opiate Screen,Urine Negative
[2020-07-14] MEDS ORDERED: amLODIPine 5 MG TAB PO ONE (09:00)
[2020-07-14 09:03] VITALS: BP 151/97
--- NOTE | 2020-07-14 10:55 | Event Note ---
Date: 07/14/20 Patient seen this morning on psych rounding. Patient initially had aggressive behavior but her aggression has been managed well overnight. Initial white blood cell count was 16.7. We will repeat this so the patient can be fully medically cleared.
--- NOTE | 2020-07-14 11:12 | Consultation ---
History of Present Illness - Reason for Consult Consult date: 07/14/20 Reason for consult: MHE Requesting physician: ANICETO DUPREE - History of Present Psychiatric Illness Per ED Provider:30-year-old male, history of bipolar disorder and schizophrenia, presents to ED for mental health evaluation. Per patient's mother, patient has not been taking his medication for the last month. Patient has been exhibiting aggressive behavior and rambling thoughts. Patient reports some auditory hallucinations. States people are sending messages to him. Patient denies any SI or HI. PSYCH HPI Patient is a 30-year-old single, unemployed -[place] male with past psychiatric history of bipolar schizophrenia who currently resides with his mom presented to the ED by mom with complaint of increased aggressive behavior and medication noncompliance. Patient presented as guarded, patient stated he is here because his mom brought him here due to family problems. Patient siddhartho rates that her family problem is currently having is with his stepdad who has been a coward and has been messing with him at home. Patient denies SI, HI or AVJ. PAST PSYCHIATRIC HISTORY Diagnoses: Schizophrenia Suicide attempts or Self-harm behavior: none rported Prior psychiatric hospitalizations: none rported Substance Abuse history: none rported Previous psychiatric medications tried: Outpatient treatment: PAST MEDICAL HISTORY: none rported Family Psychiatric History: None reported or documented SOCIAL HISTORY Marital Status: single Living Arrangements: with family Employment Status: emplyed Access to guns/weapons: none reprted Education: some college History of Abuse: none reprted Legal History: yes REVIEW OF SYSTEMS Constitutional: Negative for weight loss ENT: Negative for stridor Respiratory: Negative for cough or hemoptysis All other systems reviewed and are negative MENTAL STATUS EXAMINATION General Appearance and Behavior: Age appropriate, fair hygiene, wearing appr opriate clothes, lying in bed, poor eye contact, cooperative irritable with questioning. Cooperation: Participating, Hostile and Guarded Psychomotor Behavior: unremarkable and within normal limits Mood: I don't know Affect and affective range: flat, preservative Thought Process: Illogical, Blocked, Thought Content: Hopelessness, Speech: Normal volume, Regular rate and rhythm, Intellectual Functioning: Average Suicidal Ideation: Denies SI Homicidal Ideation: Denies HI Impulse Control: Impaired Insight and Judgment: Limited insight and judgment Memory: Short term memory intact Attention: Divided attention impaired Orientation: Alert, oriented, Assessment and Plan - Psychiatric problem (1) Bipolar disorder Current Visit: Yes Status: Acute F31.9 Treatment Plan Due to history of non compliance, pt started on IM invega, would need outpt follow up psychiatry. MEDICATIONS: Risks, benefits and alternatives of medications discussed with the patient, questions answered and consent obtained from patient. PSYCHOTHERAPY: Supportive psychotherapy provided MEDICAL: Per primary team DELIRIUM PRECAUTIONS: Please re-orient patient frequently, keep lights on during the day, and minimize benzodiazepines and opiates as these medications could worsen patient's confusion. 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 Case discussed with Dr. Restrepo who agrees with current disposition LEGAL STATUS: 1013 rescinded FOLLOW-UP: Will sign off Thank you for the consult. Please contact with any questions and/or concerns. Medications and Allergies Allergies Allergy/AdvReac Type Severity Reaction Status Date / Time No Known Allergies Allergy Verified 08/14/19 18:57 Home Medications Medication Instructions Recorded Confirmed Last Taken Type Benztropine [Cogentin] 0.5 mg PO BID #60 tablet 11/16/18 Unknown Rx Ziprasidone [Geodon] 20 mg PO BID #60 capsule 11/16/18 Unknown Rx Paliperidone Palmitate [Invega 156 mg IM QMONTH #3 syringe 07/14/20 Unknown Rx Sustenna] Mental Status Exam - Vital signs Last Vital Signs Temp 98 F 07/14/20 09:03 Pulse 90 07/14/20 09:03 Resp 20 07/14/20 09:03 BP 151/97 07/14/20 09:03 Pulse Ox 100 07/14/20 09:03 Results Result Diagrams: 07/14/20 11:40 07/13/20 20:57 Abnormal lab results 07/13/20 07/13/20 07/13/20 Range/Units 20:57 20:57 20:57 WBC (4.5-11.0) K/mm3 RBC (3.65-5.03) M/mm3 Hgb (11.8-15.2) gm/dl Hct (35.5-45.6) % [place] # (Auto) (0.0-0.8) K/mm3 Seg Neutrophils % (40.0-70.0) % Seg Neutrophils # (1.8-7.7) K/mm3 Glucose 171 H (75-100) mg/dL Salicylates 0.3 L (2.8-20.0) mg/dL Acetaminophen 5.0 L (10.0-30.0) ug/mL 07/13/20 Range/Units 20:57 WBC 16.7 H (4.5-11.0) K/mm3 RBC 5.16 H (3.65-5.03) M/mm3 Hgb 16.0 H (11.8-15.2) gm/dl Hct 47.5 H (35.5-45.6) % [place] # (Auto) 1.0 H (0.0-0.8) K/mm3 Seg Neutrophils % 77.8 H (40.0-70.0) % Seg Neutrophils # 13.0 H (1.8-7.7) K/mm3 Glucose (75-100) mg/dL Salicylates (2.8-20.0) mg/dL Acetaminophen (10.0-30.0) ug/mL All other labs normal. Assessment and Plan - Psychiatric problem (1) Bipolar disorder Current Visit: Yes Status: Acute
[2020-07-14 12:03] LABS: Hematocrit 45.2 % (35.5-45.6); Hemoglobin 15.2 gm/dl (11.8-15.2); Mean Corpuscular HGB Conc 34 % (32-34); Mean Corpuscular Volume 93 fl (84-94); Platelet Count 180 K/mm3 (140-440); Red Blood Count 4.88 M/mm3 (3.65-5.03); Red Cell Distribution Width 13.9 % (13.2-15.2)
[2020-07-14] MEDS ORDERED: PALIPERIDONE PALMITATE 234 MG/1.5 ML SYRINGE IM STA (12:20)
[2020-07-14 13:55] LABS: Total Cells Counted 100
[2020-07-14 13:56] LABS: RBC Morphology Normal
[2020-07-14 13:57] LABS: Platelet Estimate Consistent w Auto
== END 2020-07-14 16:40 | disposition home or self-care (01) ==
LOC: ED 18:46
DX: F20.9 Schizophrenia, unspecified (principal); E66.01 Morbid (severe) obesity due to excess calories; Z20.822 Contact with and (suspected) exposure to COVID-19; Z68.43 Body mass index [BMI] 50.0-59.9, adult
CPT/HCPCS: 36415; 80048; 80307; 81001; 85007; 85025; 99284; J2426; U0003; 80320; G0480